=== PATIENT | female | born 1940 | race Caucasian/White ===

== ENCOUNTER → 2016-11-12 | Outpatient (CLI) | payer MEDICARE ==
[~2016-11-12] MED LIST: OMNIPAQUE 350 MG/ML, 100ML BOTTLE ONE
== END | disposition home or self-care (01) ==
LOC: CFH 12:17
PROVIDERS: ATTEND Family Medicine
DX: K57.30 Diverticulosis of large intestine without perforation or abscess without bleeding (principal); M43.16 Spondylolisthesis, lumbar region; K76.0 Fatty (change of) liver, not elsewhere classified; Z90.710 Acquired absence of both cervix and uterus
CPT/HCPCS: 74177; Q9967

== ENCOUNTER → 2016-12-08 | Outpatient (CLI) | payer MEDICARE ==
[~2016-12-08] MED LIST changes: -OMNIPAQUE 350 MG/ML, 100ML BOTTLE ONE; +SINCALIDE (KINEVAC) 5 MCG ONE
== END | disposition home or self-care (01) ==
LOC: RAD 09:19
PROVIDERS: ATTEND Family Medicine
DX: K82.8 Other specified diseases of gallbladder (principal)
CPT/HCPCS: 78227; A9537; J2805

== ENCOUNTER 2017-12-25 07:39 | Day surgery (SDC) | payer MEDICARE ==
[2017-12-22 15:03] LABS: BASOPHILS # (AUTO) 0.05 x10^3/uL (0-0.1); BASOPHILS % (AUTO) 1 % (0-1); EOSINOPHILS # (AUTO) 0.21 x10^3/uL (0-0.4); EOSINOPHILS % (AUTO) 2 % (1-7); LYMPHOCYTES # (AUTO) 2.81 x10^3/uL (1-3.4); LYMPHOCYTES % (AUTO) 33 % (22-44); MD NO; MEAN CORPUSCULAR HEMOGLOBIN 28.6 pg (27.0-34.8); MEAN CORPUSCULAR HGB CONC 33.1 g/dL (32.4-35.8); MEAN CORPUSCULAR VOLUME 86.3 fL (80-100); MEAN PLATELET VOLUME 8.1 fL (7.4-10.4); MONOCYTES # (AUTO) 0.69 x10^3/uL (0.2-0.8); MONOCYTES % (AUTO) 8 % (2-9); NEUTROPHILS # (AUTO) 4.88 x10^3/uL (1.8-6.8); NEUTROPHILS % (AUTO) 57 % (42-75); PLATELET COUNT 255 x10^3/uL (130-400); RED BLOOD COUNT 4.84 x10^6/uL (3.82-5.3)
[2017-12-22 15:09] LABS: ALANINE AMINOTRANSFERASE 23 U/L (12-78); ALBUMIN 3.7 g/dL (3.4-5.0); ANION GAP 6 mmol/L (5-15); CALCIUM 9.1 mg/dL (8.5-10.1); CHLORIDE 107 mmol/L (98-107); CREATININE 0.97 mg/dL (0.55-1.02)
[2017-12-22 15:12] LABS: ALKALINE PHOSPHATASE 77 U/L (45-117); BILIRUBIN,TOTAL 0.8 mg/dL (0.2-1.0); TOTAL PROTEIN 7.8 g/dL (6.4-8.2)
[~2017-12-25] VITALS: Ht 158.8 cm; Wt 66.2 kg
[~2017-12-25 07:39] MED LIST changes: +APIX5TAB PO; +ATOR20TA9 PO; +CALC1CAP8 PO; +ESOM40CA PO; +ESTR42.53 VG; +ESTROGENS CONJUGATED VAG CRM 0.625MG/1G, 30GM ONE; +HYDR28.3 RC; +LEVO125T PO; +LOSA25TA5 PO; +MULT-658 PO; +OMEG1CAP34 PO; +POLY17PO5 PO; +PSYL174P2 PO; +SENN1TAB67 PO; -SINCALIDE (KINEVAC) 5 MCG ONE; +SOTA80TA PO; +THROMBIN 5,000 UNIT VIAL TP ONE
[2017-12-25] MEDS ORDERED: BUPIVACAINE/PF 0.25% ONE (08:11)
[2017-12-25] MEDS ORDERED: LACTATED RINGERS 1,000 ML IV SCH (08:22)
[2017-12-25 08:40] VITALS: BP 158/88
[2017-12-25] MEDS ORDERED: LIDOCAINE-MPF 1%, 2ML ONE (08:52)
[2017-12-25] MEDS ORDERED: FENTANYL PF 100 MCG/2ML ONE (10:11)
[2017-12-25] MEDS ORDERED: BUPIVACAINE/PF-EPI 0.25% 1:200K INFIL ONE (10:29)
[2017-12-25] MEDS ORDERED: KETOROLAC 30 MG/1 ML IV PRN (10:30)
[2017-12-25] MEDS ORDERED: ACETAMINOPHEN 325 MG TABLET PO PRN (10:30)
[2017-12-25] MEDS ORDERED: PROMETHAZINE 25 MG/ML, 1ML IV PRN (10:30)
[2017-12-25] MEDS ORDERED: ALBUTEROL SULFATE 2.5 MG/3 ML NPPB PRN (10:30)
[2017-12-25] MEDS ORDERED: LABETALOL 5MG/ML, 20ML IV PRN (10:30)
[2017-12-25] MEDS ORDERED: hydrALAzine 20 MG/ML, 1ML IV PRN (10:30)
[2017-12-25] MEDS ORDERED: OXYcodone 5 MG/5 ML ORAL.SOL UDC PO PRN (10:30)
[2017-12-25] MEDS ORDERED: HYDROmorphone 2 MG/ML, 1ML IV PRN (10:30)
[2017-12-25] MEDS ORDERED: MORPHINE SULFATE 4 MG/ML, 1ML IVPush PRN (10:30)
[2017-12-25] MEDS ORDERED: FENTANYL PF 100 MCG/2ML IV PRN (10:30)
[2017-12-25] MEDS ORDERED: OXYcodone 5 MG/5 ML ORAL.SOL UDC ONE (10:58)
[2017-12-25] MEDS ORDERED: ACETAMINOPHEN 650 MG/20.3 ML UDC ONE (10:58)
[2017-12-25] MEDS ORDERED: EPHEDRINE 50 MG/ML, 1ML ONE (15:53)
[2017-12-25] MEDS ORDERED: DEXAMETHASONE 4 MG/ML, 1ML ONE (15:53)
[2017-12-25] MEDS ORDERED: CEFOTETAN 1 GM ONE (15:53)
[2017-12-25] MEDS ORDERED: ONDANSETRON 2MG/ML, 2ML ONE (15:53)
[2017-12-25] MEDS ORDERED: PROPOFOL 10 MG/ML, 20ML ONE (15:53)
[2017-12-25] MEDS ORDERED: METRONIDAZOLE PMX 500MG/100ML ONE (15:54)
== END 2017-12-25 14:40 ==
LOC: OUT 07:39
PROVIDERS: ATTEND Obstetrics & Gynecology Gynecology
DX: T83.721A Exposure of implanted vaginal mesh into vagina, initial encounter (principal); I10 Essential (primary) hypertension; E78.5 Hyperlipidemia, unspecified; Y83.8 Other surgical procedures as the cause of abnormal reaction of the patient, or of later complication, without mention of misadventure at the time of the procedure; Y92.89 Other specified places as the place of occurrence of the external cause
CPT/HCPCS: 36415; 57295; 80053; 85025; J1100; J2405; J2704; J3010; J3490; S0074